=== PATIENT | female | born 1980 | race Caucasian/White ===

== ENCOUNTER 2017-02-22 00:27 | Emergency (ER) | payer OTHER, MEDICAID ==
--- NOTE | 2017-02-22 00:36 | EDPHY ---
H & P Time Seen by Provider: 02/22/17 00:32 HPI/ROS: CHIEF COMPLAINT: pain to the left side of the head just in front of the tragus. HISTORY OF PRESENT ILLNESS: this is a 36-year-old female who is 1 month . She is not nursing at this time. She was fine until yesterday sometime today when she started noticing progressive, ultimately severe pain to the left side of the head going up from the angle of mandible to the mormonism. This is not shifted location but simply became worse and worse. Slow in onset. She does not want to get headaches. She does not recall any trauma. There is no cracked tooth of the time. She has no antecedent URI. The pain itself is located just anterior to the tragus encompasses the portion of the ear. Mostly anterior. There has been no associated drainage. No trauma to the area. She does not use Q-tips. She is not a swimmer. She noted yesterday evening that she was unable to lay back to sleep. Thus a when she did so it started throbbing become worse. She certainly was not able to put her head on a pillow on that side Pain management home consisted of a Aleve 3 pills every 4 hours for a total of at least 15 in the last 24 hours. She has not been using any Tylenol with this. We had a lengthy discussion regarding current correct use of Aleve and the fact that she needs to take a holiday. As the pain medication use: She does describe being on a course of Percocet for incisional pain related to her back in December. I have checked the [place] prescription drug monitoring program and she is not in there - not even the December Percocet Rx. However, there is a database change recentl, with notice indicating that prescription information before January 18 has yet to be integrated successfully. Nonetheless, she notes that she does not have a prior history of addiction nor family history of addiction related to narcotics- father is alcoholic. Finally, she has no prior addiction herself and there is no bipolar disease. Discharge none Trismus none Trauma none Penicillin allergy was that of a rash. Did not require hospitalization. REVIEW OF SYSTEMS: Gen: No fevers or chills. ENT: No discharge from either ear or nose. There has been no trauma. She has had no antecedent URI. There is no sinus pain. Overall the pain is worse when she lays back but this does not experience pressure-like discomfort over her frontal maxillary sinuses when she lays back. Respiratory: No cough, no dyspnea. Physical Exam: Gen: Well developed, well nourished. Nontoxic. HEENT: Normocephalic. Membranes moist. No foul odor. There is no trismus. There is no drainage within the mouth. There is moderate dental decay. No submandibular adenopathy noted Ears: TMs are clear. Hearing normal. There is pain to the left ear canal with using the arthroscope compared to the right. There is also tenderness present over the tragus and some discomfort with traction of the helix itself. However the canal is not erythematous. The canal does seem to be somewhat narrowed on the side. There is no anneliese tenderness to the the sinuses beat maxillary frontal as well as ethmoid. There is no tenderness overlying the zygoma. I was able to percuss the bicuspid on the left with a tongue blade without pain. There is extensive dental K along the alveolar ridge with the black and remnants of teeth at gum level. However, this is nontender to palpation with gloved finger. Eyes: PERRL. No conjunctival injection or pallor. no jaundice. Nose: No nasal discharge. Sinuses are nontender. Throat: Membranes are moist. Oropharynx is without erythema or exudate. Normal phonation. Neck: Trachea is in the ML. No laryngeal tenderness. No adenopathy Skin: Good color, without pallor. There is no diaphoresis. Skin is warm and dry , without diaphoresis. No vesicles. Intact without rashes Constitutional: Initial Vital Signs Temperature (C) 36.9 C 02/22/17 00:38 Heart Rate 72 02/22/17 00:38 Respiratory Rate 16 02/22/17 00:38 Blood Pressure 129/87 H 02/22/17 00:38 O2 Sat (%) 95 02/22/17 00:38 O2 Delivery Mode Room Air Allergies/Adverse Reactions: ibuprofen Allergy (Verified 02/22/17 00:37) Penicillins Allergy (Verified 02/22/17 00:37) Home Medications: Medication Instructions Recorded Clindamycin 2 tab PO Q6 #80 cap 02/22/17 Naproxen Sodium [Aleve 220 MG (*)] 02/22/17 oxyCODONE HCL/ACETAMINOPHEN 1 - 2 each PO Q6 PRN #12 tablet 02/22/17 [Percocet 5-325 mg Tablet] Medical Decision Making ED Course/Re-evaluation: She was given initiating doses of clindamycin, Percocet and Cortisporin We lengthy discussion regarding diagnostic alternatives. The dental problem would be the most attractive from a nocturnal presentation point of view aas well as due to her extremely poor dentition. However, she is not tender to palpation along the alveolar ridge and there is no active drainage at this time. Furthermore is no tenderness to the sinus area itself as would be seen if there was a tip of the tooth process that might be causing this. Other considerations would be that of early shingles, too early to see the rash, as well as Da Pa. We discussed this etiology as a prospect if she developed a rash. Finally there is tenderness over the tragus as well as with the application of the otoscope, thereby otitis externa is most likely process at this time Differential Diagnosis: Diagnostic considerations include, but are not limited to, the following: Dental abscess, dental caries, sinusitis, otitis externa, Da Pa syndrome, shingles. - Data Points Medications Given: Discontinued Medications Cephalexin (Keflex 500 Mg Prepack#4) 1 btl TAKEHOME EDNOW ONE PRN Reason: Protocol Stop: 02/22/17 01:06 Last Admin: 02/22/17 01:14 Dose: Not Given Departure - Departure Disposition: Home, Routine, Self-Care Clinical Impression: Otitis externa Qualifiers: Otitis externa type: unspecified type Chronicity: acute Laterality: left Qualified Code(s): H60.502 - Unspecified acute noninfective otitis externa, left ear Condition: Good Instructions: Otitis Externa (ED) Additional Instructions: No moisture into the ear canal for 2 weeks. So, when you do shower or clean her hair, insert a cotton ball into the bowl of the ear, so as to create a seal. Cortisporin Drops are 4 times daily, do an use a piece of cotton in the bowl the ear so as to prevent drainage While Aleve is an effective pain killer, he has taken way too much. Do not take any until Wednesday morning, 36 hours from now Referrals: Patient,NotPresent [Primary Care Provider] - As per Instructions Prescriptions: Clindamycin 2 tab PO Q6 #80 cap oxyCODONE HCL/ACETAMINOPHEN [Percocet 5-325 mg Tablet] 1 - 2 each PO Q6 PRN #12 tablet PRN Reason: moderate pain
[2017-02-22 00:41] VITALS: TEMP 98.4; O2SAT 95
[2017-02-22] MEDS ORDERED: OXYCODONE/APAP 5/325MG PREPACK#4 BTL TAKEHOME ONE (01:05)
[2017-02-22] MEDS ORDERED: CEPHALEXIN 500MG PREPACK#4 BTL TAKEHOME ONE (01:05)
[2017-02-22] MEDS ORDERED: NEOMYCIN/POLYMYX B/HC SUSP 10 ML OTIC.BTL LEFTEAR ONE (01:06)
[2017-02-22] MEDS ORDERED: CLINDAMYCIN 150MG PREPACK#6 BTL TAKEHOME ONE (01:12)
[2017-02-22 01:44] VITALS: BP 120/80; PULSE 65; RESP 14
== END 2017-02-22 01:43 | disposition home or self-care (01) ==
LOC: CED 00:27
DX: O99.89 Other specified diseases and conditions complicating pregnancy, childbirth and the puerperium (principal); H60.502 Unspecified acute noninfective otitis externa, left ear